=== PATIENT | female | born 1950 | race Two or more races ===

== ENCOUNTER → 2016-09-23 | Outpatient (CLI) | payer MEDICARE ==
[2014-06-25 01:05] VITALS: BP 138/67
--- NOTE | 2016-09-23 15:24 | CARD ---
APPROVED REPORT EXAM: Two-dimensional and M-mode echocardiogram with Doppler and color Doppler. Other Information Quality : Good Rhythm : NSR INDICATION Short of breath RISK FACTORS Hyperlipidemia 2D DIMENSIONS RVDd2.3 (2.9-3.5cm)Left Atrium(2D)3.6 (1.6-4.0cm) IVSd0.8 (0.7-1.1cm)Aortic Root(2D)3.0 (2.0-3.7cm) LVDd4.7 (3.9-5.9cm)LVOT Diameter2.2 (1.8-2.4cm) PWd0.8 (0.7-1.1cm)LVDs3.0 (2.5-4.0cm) FS (%) 37.2 %SV70.0 ml LVEF(%)67.1 (>50%) Aortic Valve AoV Peak Prashanth.126.7cm/sAoV VTI29.9cm AO Peak GR.6.4mmHgLVOT Peak Prashanth.115.3cm/s AO Mean GR.4mmHgAVA (VMAX)3.48cm2 Mitral Valve MV E Fbuvcdtd98.3cm/sMV DECEL [id number] MV A Zevqhcmu85.5cm/sE/A Ratio0.8 MV A [id number] Tricuspid Valve TR P. Xodgptvu772av/sTR Peak Gr.27mmHg Pulmonary Vein S1 Xzousnfq79.4cm/sD2 Alumtfor27.1cm/s PVa ihzlnrxg68dtsl LEFT VENTRICLE The left ventricle is normal size. There is normal left ventricular wall thickness. The left ventricu lar systolic function is normal. The Ejection Fraction is 60-65%. There is normal LV segmental wall m otion. Transmitral Doppler flow pattern is Grade I-abnormal relaxation pattern. RIGHT VENTRICLE The right ventricle is normal size. There is normal right ventricular wall thickness. The right ventr icular systolic function is normal. ATRIA The left atrium size is normal. The right atrium size is normal. The interatrial septum is intact wit h no evidence for an atrial septal defect or patent foramen ovale as noted on 2-D or Doppler imaging. AORTIC VALVE The aortic valve is mildly thickened. The aortic valve is trileaflet. Doppler and Color Flow revealed no significant aortic regurgitation. There is no significant aortic valvular stenosis. MITRAL VALVE Mitral annular calcification is minimal. The mitral valve leaflets are normal. There is no evidence o f mitral valve prolapse. There is no mitral valve stenosis. Doppler and Color Flow revealed trace sunil ral regurgitation. TRICUSPID VALVE Doppler and Color Flow revealed trace tricuspid regurgitation. The pulmonary artery systolic pressure is estimated at 30 mmHg. There is mild pulmonary hypertension. PULMONIC VALVE Doppler and Color Flow revealed trace pulmonic valvular regurgitation. There is no pulmonic valvular stenosis. GREAT VESSELS The aortic root is normal in size. The ascending aorta is normal in size. The pulmonary artery is nor mal. The IVC is normal in size and collapses >50% with inspiration. PERICARDIAL EFFUSION There is no evidence of significant pericardial effusion. Critical Notification Critical Value: No <Conclusion> The left ventricular systolic function is normal. The Ejection Fraction is 60-65%. There is normal LV segmental wall motion. Transmitral Doppler flow pattern is Grade I-abnormal relaxation pattern. Trace mitral regurgitation. Trace tricuspid regurgitation. The pulmonary artery systolic pressure is estimated at 30 mmHg. There is no evidence of significant pericardial effusion.
== END | disposition home or self-care (01) ==
LOC: ECHO 13:02
PROVIDERS: ATTEND Family Medicine
DX: I08.1 Rheumatic disorders of both mitral and tricuspid valves (principal)
CPT/HCPCS: 93306

== ENCOUNTER → 2017-07-14 | Day surgery (SDC) | payer MEDICARE ==
[~2017-07-14] MED LIST: LIDOCAINE 1% PF 2 ML VIAL. ID; LIDOCAINE 2% 100 MG/5 ML SYRINGE.; MIDAZOLAM HCL/PF 2 MG/2 ML VIAL. IV; PROPOFOL 20 ML IV; fentaNYL PF VIAL 100 MCG/2 ML VIAL IV
[2017-07-14] MEDS: IV RINGERS,LACTATED 1000ML 1,000 ML IV (08:31)
[2017-07-14 08:33] LABS: POC GLUCOSE 90 mg/dL (70-99)
== END ==
LOC: SURG 07:57
DX: Z12.11 Encounter for screening for malignant neoplasm of colon (principal); K64.8 Other hemorrhoids; E11.9 Type 2 diabetes mellitus without complications; M19.90 Unspecified osteoarthritis, unspecified site; Z79.84 Long term (current) use of oral hypoglycemic drugs; Z79.899 Other long term (current) drug therapy; Z98.890 Other specified postprocedural states
CPT/HCPCS: 82962; J2704

== ENCOUNTER → 2019-03-30 | Outpatient (CLI) | payer MEDICARE, OTHER ==
[2017-07-14 09:45] VITALS: BP 125/63
[~2019-03-30] MED LIST changes: -LIDOCAINE 1% PF 2 ML VIAL. ID; -LIDOCAINE 2% 100 MG/5 ML SYRINGE.; +METF500T16 PO; -MIDAZOLAM HCL/PF 2 MG/2 ML VIAL. IV; -PROPOFOL 20 ML IV; +SIMV20TA18 PO; -fentaNYL PF VIAL 100 MCG/2 ML VIAL IV
--- NOTE | 2019-03-30 11:53 | CARD ---
MR#: [id number] Date of Study: 03/30/2019 Ordering Physician: RENU PATEL, Referring Physician: Tyrone LANDAVERDE: Hermila Cuevas APPROVED REPORT EXAM: Two-dimensional and M-mode echocardiogram with Doppler and color Doppler. Other Information Quality : AverageHR: 66bpm INDICATION Dyspnea Cardiomegaly 2D DIMENSIONS RVDd2.7 (2.9-3.5cm)Left Atrium(2D)3.5 (1.6-4.0cm) IVSd0.9 (0.7-1.1cm)Aortic Root(2D)2.3 (2.0-3.7cm) LVDd4.5 (3.9-5.9cm)LVOT Diameter1.9 (1.8-2.4cm) PWd0.8 (0.7-1.1cm)LVDs2.6 (2.5-4.0cm) FS (%) 41.2 %SV66.3 ml Aortic Valve AoV Peak Prashanth.108.0cm/sAoV VTI25.0cm AO Peak GR.4.7mmHgLVOT Peak Prashanth.98.1cm/s AO Mean GR.3mmHgAVA (VMAX)2.69cm2 Mitral Valve MV E Kmxobvto83.5cm/sMV E Peak Gr.4mmHg MV DECEL [id number] A Qpwcdbsw08.0cm/s MV E Mean Gr.1mmHgE/A Ratio0.9 Pulmonary Valve PV Peak Xydwujus42.6cm/s Tricuspid Valve TR P. Dtgdrrdl770oe/sRAP [id number] TR Peak Gr.15ksSpCRLK60spFk Pulmonary Vein S1 Kahqungc49.7cm/sD2 Dmlhfdlt03.5cm/s LEFT VENTRICLE The left ventricle is normal size. There is normal left ventricular wall thickness. The left ventricu lar systolic function is normal and the ejection fraction is within normal range. The Ejection Fracti on is 60-65%. There is normal LV segmental wall motion. Transmitral Doppler flow pattern is Grade I-a bnormal relaxation pattern. RIGHT VENTRICLE The right ventricle is normal size. The right ventricular systolic function is normal. ATRIA The left atrium size is normal. The right atrium size is normal. The interatrial septum is intact wit h no evidence for an atrial septal defect or patent foramen ovale as noted on 2-D or Doppler imaging. AORTIC VALVE The aortic valve is thickened but opens well. Doppler and Color Flow revealed no significant aortic r egurgitation. There is no significant aortic valvular stenosis. MITRAL VALVE The mitral valve is thickened but opens well. There is no evidence of mitral valve prolapse. There is no mitral valve stenosis. Doppler and Color-flow revealed trace mitral regurgitation. TRICUSPID VALVE The tricuspid valve is normal in structure and function. Doppler and Color Flow revealed mild tricusp id regurgitation with an estimated PAP of 25 mmHg. PULMONIC VALVE The pulmonic valve is not well visualized. Doppler and Color Flow revealed mild pulmonic valvular reg urgitation. GREAT VESSELS The aortic root is normal in size. The ascending aorta is normal in size. The IVC is normal in size a nd collapses >50% with inspiration. PERICARDIAL EFFUSION There is no pleural effusion. There is no evidence of significant pericardial effusion. Critical Notification Critical Value: No <Conclusion> The left ventricle is normal size. The left ventricular systolic function is normal and the ejection fraction is within normal range. The Ejection Fraction is 60-65%. Doppler and Color Flow revealed no significant aortic regurgitation. There is no significant aortic valvular stenosis. Doppler and Color-flow revealed trace mitral regurgitation. Doppler and Color Flow revealed mild tricuspid regurgitation with an estimated PAP of 25 mmHg. Signed by : Sumanth Nelson MD Electronically Approved : 03/30/2019 11:52:30
== END | disposition home or self-care (01) ==
LOC: ECHO 10:44
PROVIDERS: ATTEND Family Medicine
DX: I08.8 Other rheumatic multiple valve diseases (principal); I42.9 Cardiomyopathy, unspecified; E11.9 Type 2 diabetes mellitus without complications
CPT/HCPCS: 93306